=== PATIENT | male | born 1995 | race Caucasian/White ===

== ENCOUNTER 2020-05-05 22:46 | Emergency (ER) | payer BC, OTHER ==
[~2020-05-05] VITALS: Ht 188 cm; Wt 98.0 kg
--- NOTE | 2020-05-05 23:04 | NUR ---
PT CAME IN TODAY DUE TO FEELING LIKE THERE IS STEAK STUCK IN HIS THROAT. STATES HE WAS "EATING SOME STEAK AND WENT TO LAUGH AND THEN IT JUST WENT STRAIGHT DOWN AND I COULDNT TELL IF I COULD GET IT BACK UP" PT STATES THIS OCCURRED 45 MINUTES AGO. PT SPITTING INTO BAG DUE TO FEELING HE IS UNABLE TO SWALLOW. PT DENIES DIFFICULTY BREATHING. GROSS NEURO INTACT, LUNG SOUNDS CLEAR, EQUAL AND BILATERAL CHEST RISE AND FALL. YAZMIN MD AT BEDSIDE FOR EVAL AND POC. WCTM. PT PLACD ON SPO2/BP MONITOR. VSS.
[2020-05-05] MEDS ORDERED: SODIUM CHLORIDE 0.9% 1,000 ML IV ONE (23:06)
[2020-05-05] MEDS ORDERED: ONDANSETRON 2MG/ML, 2ML IVPush ONE (23:30)
[2020-05-05] MEDS ORDERED: SODIUM CHLORIDE FLUSH 10ML SYR IVF ONE (23:30)
[2020-05-05] MEDS ORDERED: PROPOFOL 10 MG/ML, 20ML IVPush ONE (23:30)
[2020-05-05] MEDS ORDERED: PROPOFOL 10 MG/ML, 20ML ONE (23:40)
[2020-05-05] MEDS ORDERED: ONDANSETRON 2MG/ML, 2ML ONE (23:40)
--- NOTE | 2020-05-06 | NUR ---
LATE ENTRY: RN SETTING UP FOR PROCEDURAL SEDATION. PT RESTING IN [place], [place], NO CHANGE IN CONDITION. WCTM.
[2020-05-06] MEDS ORDERED: PROPOFOL 10 MG/ML, 20ML ONE ×3 (00:03→00:15)
[2020-05-06] MEDS ORDERED: KETAMINE 10 MG/ML, 20ML ONE (00:15)
--- NOTE | 2020-05-06 00:33 | NUR ---
PT CONCIOUS SEDATION FOR SCOPE, PROPOFOL WAS USED 510 MG GIVEN TO SEDATE PT APPROPRIATELY FOR PROCEDURE. START TIME: 0008 END TIME: 0020 PT DID NOT SEDATE EASILY. KETAMINE WAS PULLED BUT NOT USED. PROCEDURE TOLERATED WELL. PT STATES HE IS MORE COMFORTABLE AFTER PROCEDURE. NAD. WCTM. DR GO AT DISCUSSING PROCEDURAL FINDINGS WITH PT.
--- NOTE | 2020-05-06 00:43 | NUR ---
UNUSED MEDICATION WASTED WITH LETITIA LUCAS. PROCEDURAL PACKETS COMPELETED AND FILED. PT RESTING IN [facility], STATES HE IS COMFORTABLE, FACETIMING WITH FRIEND, GOVIND.
[2020-05-06 01:34] VITALS: BP 131/81
--- NOTE | 2020-05-06 01:39 | NUR ---
BREAK RN: PT ALERT AND AWAKE. ALL VITALS STABLE. AMBULATORY WITH A STEADY GAIT.
== END 2020-05-06 02:17 | disposition home or self-care (01) ==
LOC: ED 05-06 01:12
DX: T18.128A Food in esophagus causing other injury, initial encounter (principal); K21.9 Gastro-esophageal reflux disease without esophagitis; R12 Heartburn; X58.XXXA Exposure to other specified factors, initial encounter; Y93.89 Activity, other specified; Y92.89 Other specified places as the place of occurrence of the external cause; Y99.8 Other external cause status
CPT/HCPCS: 43239; 88305; 96361; 96374; 99152; 99285; J2405; J7030; 96372

== ENCOUNTER 2021-05-29 10:46 | Emergency (ER) | payer BC, OTHER ==
[~2021-05-29] VITALS: Ht 185.4 cm; Wt 106.0 kg
[2021-05-29] MEDS ORDERED: SODIUM CHLORIDE 0.9% 1,000 ML IV ONE (12:00)
[2021-05-29] MEDS ORDERED: FAMOTIDINE 20 MG/2 ML IVPush ONE (12:00)
[2021-05-29] MEDS ORDERED: SODIUM CHLORIDE FLUSH 10ML SYR IVF ONE (12:00)
[2021-05-29] MEDS ORDERED: ONDANSETRON 2MG/ML, 2ML IVPush ONE (12:00)
[2021-05-29] MEDS ORDERED: SODIUM CHLORIDE 0.9% 1,000ML IVBOLUS ONE (12:00)
--- NOTE | 2021-05-29 12:01 | NUR ---
TASK RN: PT AMBULATED TO RESTROOM FOR URINE SAMPLE.
[2021-05-29] MEDS ORDERED: FAMOTIDINE 20 MG/2 ML ONE (12:07)
[2021-05-29] MEDS ORDERED: ONDANSETRON 2MG/ML, 2ML ONE (12:07)
[2021-05-29] MEDS ORDERED: MORPHINE SULFATE 4 MG/ML, 1ML ONE ×2 (12:07→13:49)
[2021-05-29 12:08] LABS: BASOPHILS % (AUTO) 0 % (0-1); EOSINOPHILS % (AUTO) 3 % (1-7); LYMPHOCYTES % (AUTO) 16 % (22-44); MEAN CORPUSCULAR HEMOGLOBIN 29.9 pg (27.5-34.5); MEAN CORPUSCULAR HGB CONC 34.2 g/dL (33.2-36.2); MEAN PLATELET VOLUME 9.2 fL (7.4-10.4); MONOCYTES % (AUTO) 6 % (2-9); NEUTROPHILS % (AUTO) 75 % (42-75); PLATELET COUNT 241 x10^3/uL (130-400); RED BLOOD COUNT 5.44 x10^6/uL (4.38-5.82); RED CELL DISTRIBUTION WIDTH 13.1 % (9.4-14.8)
[2021-05-29 12:18] LABS: ALANINE AMINOTRANSFERASE 43 U/L (12-78); ALBUMIN 3.9 g/dL (3.4-5.0); ANION GAP 6 mmol/L (5-15); CALCIUM 9.6 mg/dL (8.5-10.1); CHLORIDE 108 mmol/L (98-107); CREATININE 1.17 mg/dL (0.7-1.3)
[2021-05-29] MEDS: MORPHINE SULFATE 4 MG/ML, 1ML IVPush PRN ×2 (12:20→13:53)
[2021-05-29 12:21] LABS: ALKALINE PHOSPHATASE 53 U/L (45-117); BILIRUBIN,TOTAL 0.5 mg/dL (0.2-1.0); TOTAL PROTEIN 7.8 g/dL (6.4-8.2)
[2021-05-29 12:22] VITALS: BP 150/79
--- NOTE | 2021-05-29 12:28 | NUR ---
RECEIVED REPORT FROM LANCE DAHL. CARE ASSUMED. CLEAN CATCH UA COLLECTED AND SENT TO LAB. PT MEDICATED NOTED IN EMAR FOR 6.5 LUQ, LLQ ABD PAIN. VSS. CONT PULSE OX, BP MONITORS IN PLACE. IV PLACED, IVF INFUSING. AWAITING UA AND LAB RESULTS. SIGNIFICANT OTHER AT BEDSIDE. A&OX4. ASSESSMENT COMPLETED. PT REPORTS "STOMACH PAIN THAT STARTED AT 3AM, WOKE ME UP, THROWN UP 4 TIMES, I CAN'T GET COMFORTABLE." DENIES URINARY PAIN OR DIFFICUTLY. REPORTS NORMAL BM THIS AM. DENIES DIARRHEA. CALL LIGHT IN REACH. FALL PRECAUTIONS IN PLACE.
--- NOTE | 2021-05-29 12:32 | NUR ---
PT REPORTS IMMEDIATE PAIN RELIEF S/P MORPHINE. ABD NON-TENDER TO PALPATION NOW. PULSE OX 88% RA, PLACED ON 2L NC O2, PULSE OX IMPROVED TO 98%. VITALS OTHERWISE STABLE. CALL LIGHT IN REACH. FALL PRECAUTIONS IN PLACE. WILL CONTINUE TO MONITOR. WARM BLANKET PROVIDED FOR COMFORT.
[2021-05-29 12:42] LABS: MICROSCOPIC NOT IND
--- NOTE | 2021-05-29 12:55 | NUR ---
BEDSIDE REPORT AND TRANSFER OF CARE TO NOAH Garcia RN AT THIS TIME.
[2021-05-29] MEDS ORDERED: MAALOX/HYOSCYAMINE/LIDOCAINE 45 ML BTL ONE (13:49)
--- NOTE | 2021-05-29 13:55 | NUR ---
PT REPORTED INCREASE IN EPIGASTRIC ABD PAIN, 6/10. DENIES NAUSEA, TOLERATED WATER. ERP NOTIFIED. PT MEDICATED WITH 2MG MORPHINE PER HIS REQUEST AND GI COCTAIL PER ERP. SIGNIFICANT OTHER AT BS.
[2021-05-29] MEDS ORDERED: MAALOX/HYOSCYAMINE/LIDOCAINE 45 ML BTL PO ONE (14:00)
--- NOTE | 2021-05-29 14:27 | NUR ---
PT HAD SOME N/V AFTER GI COCTAIL, ERP NOTIFIED. BUT PT STATES HE WANTS TO RECOVER AT HOME. INSTRUCTED PT TO RETURN TO ED IF SYMTPOMS NOT IMPROVING. D/C INSTRUCTIONS & F/U APPT RV'WD WITH PT, RX GIVEN X1. PT AMBULATED OUT OF ED WITH GIRLFRIEND WITHOUT DIFFICULTY. Addendum: 05/29/21 at 1429 by ROSA ISELA COPY OF LAB RESULTS PROVIDED TO PT.
== END 2021-05-29 14:30 | disposition home or self-care (01) ==
LOC: ED 13:46
DX: K29.00 Acute gastritis without bleeding (principal); R10.32 Left lower quadrant pain; R11.11 Vomiting without nausea
CPT/HCPCS: 36415; 80053; 81003; 83690; 85025; 96361; 96374; 96375; 96376; 99284; J2270; J2405; J7030